=== PATIENT | male | born 1950 | race Caucasian/White ===

== ENCOUNTER → 2024-09-21 | Outpatient (REF) | payer MEDICARE ==
[~2024-09-21] MED LIST: IOPAMIDOL 370 MG/ML 100 ML INFUS..BTL INJ ONE
[2024-09-21 13:34] LABS: CREATININE, SERUM 0.76 mg/dL (0.72-1.25)
== END ==
LOC: CT 12:31
PROVIDERS: ATTEND Nurse Practitioner Family
DX: R06.02 Shortness of breath (principal); J18.9 Pneumonia, unspecified organism; J98.4 Other disorders of lung; R00.0 Tachycardia, unspecified; I48.91 Unspecified atrial fibrillation; R91.8 Other nonspecific abnormal finding of lung field; Z87.891 Personal history of nicotine dependence
CPT/HCPCS: 36415; 71260; 82565; 84520; Q9967

== ENCOUNTER → 2024-10-25 | Outpatient (REF) | payer MEDICARE | LOC: RESP 12:43 → EDSTATUS 13:00 | PROVIDERS: ATTEND Nurse Practitioner Family | DX: R06.02 Shortness of breath (principal); J18.9 Pneumonia, unspecified organism; I48.91 Unspecified atrial fibrillation; R91.8 Other nonspecific abnormal finding of lung field; R00.0 Tachycardia, unspecified; J98.4 Other disorders of lung; Z87.891 Personal history of nicotine dependence | CPT/HCPCS: 94060; 94727; 94729 ==

== ENCOUNTER → 2025-03-30 | Outpatient (REF) | payer MEDICARE | LOC: CT 11:26 | PROVIDERS: ATTEND Nurse Practitioner Family | DX: J18.8 Other pneumonia, unspecified organism (principal); J47.9 Bronchiectasis, uncomplicated; J98.4 Other disorders of lung; R91.8 Other nonspecific abnormal finding of lung field | CPT/HCPCS: 71250 ==

== ENCOUNTER → 2025-05-04 | Outpatient (REF) | payer MEDICARE ==
[~2025-05-04] MED LIST changes: -IOPAMIDOL 370 MG/ML 100 ML INFUS..BTL INJ ONE; +REGADENOSON 0.4 MG/5 ML SYR IV ONE
== END ==
LOC: NM 12:21
PROVIDERS: ATTEND Internal Medicine Cardiovascular Disease
DX: I48.0 Paroxysmal atrial fibrillation (principal)
CPT/HCPCS: 78452; 93017; A9502; J2785